=== PATIENT | female | born 1960 | race Caucasian/White ===

== ENCOUNTER 2017-06-02 21:52 | Inpatient (IN) ==
--- NOTE | 2017-06-03 02:17 | Internal Med History&Physical ---
Date of Encounter: 06/03/17 Time of Encounter: 02:11 Assessment and Plan (1) NSTEMI (non-ST elevated myocardial infarction) Current visit: Yes Status: Acute We will start the patient on antischemic medications including heparin drip. Cardiology evaluation. (2) Diabetes mellitus type 2 in obese Current visit: Yes Status: Acute (3) Leucocytosis Current visit: Yes Status: Acute Patient has a leukocytosis 13,000. Temperature 99.2. She has been having some cough of yellow sputum. Also she mentioned that for the past few days she has been having an button on bilious vomiting. She denies any abdominal pain or diarrhea. Check urinalysis right upper quadrant ultrasound. I will put the patient on azithromycin for acute bronchitis Qualifiers: Qualified Code(s): D72.829 - Elevated white blood cell count, unspecified Internal Medicine - H&P: HPI Chief complaint: chest pain History of present illness: Ms. Garcia is a 56 year old female with history of diabetes mellitus, hypertension, dyslipidemia, COPD not on home oxygen will spokeswomen lia Thorne presents to the emergency room with them ain't complaining of chest pain. At approximately 6 PM by patient was sitting down and watching TV, she started experiencing retrosternal chest pain radiating to her back in her right arm associated with sweating. This pain lasted approximately an hour and resolved with nitrates. She was often during my interview. She mentioned that she had a coronary angiogram 3 years ago and no intervention was required. Patient mentioned that she has been having some coffee yellow sputum small amount. She has been having nonbloody non bilious vomiting the past couple days. Denies abdominal pain or diarrhea. Past Med Surg Social Fam HX - Past Medical History Medical history: COPD, diabetes, GERD, hyperlipidemia, hypertension, other Psychiatric history: anxiety, depression - Past Surgical History Surgical History: hysterectomy - Social History Smoking Status: Current every day smoker Packs per day: 1.5 Smokeless Tobacco Status: No Alcohol use: none Drug use: none - Family History Mother Living Status: Hx Family Cardiac Disorders: Yes (HTN) Hx Family Endocrine Disorder: (DM) Sister Hx Family Cardiac Disorders: Yes (HTN) Hx Family Endocrine Disorder: (DM) Internal Medicine - H&P: Meds Amlodipine Besylate 10 mg PO DAILY 12/16/16 [History] Aspirin 81 mg PO DAILY 12/16/16 [History] Atorvastatin [Lipitor] 80 mg PO HS 12/16/16 [History] Ergocalciferol (VITAMIN D2) [Vitamin D2] 1.25 mg PO QWEEK 12/16/16 [History] Gabapentin [Gralise] 900 mg PO HS 12/16/16 [History] Lisinopril-HCTZ 20-12.5 [Prinzide 20-12.5] 2 tab PO DAILY 12/16/16 [History] Omeprazole 20 mg PO DAILY 12/16/16 [History] SitaGLIPtin [Januvia] 100 mg PO DAILY 12/16/16 [History] Venlafaxine XR (24 HR) [Effexor XR] 100 mg PO BID 12/16/16 [History] cloNIDine HCl [Clonidine HCl] 0.4 mg PO HS 12/16/16 [History] Insulin Glargine [Lantus] 70 unit SQ HS 06/02/17 [History] Liraglutide [Victoza 2-John] 1.2 mg SQ DAILY 06/02/17 [History] Albuterol Sulfate [Ventolin Hfa] 90 mcg IH Q4HR PRN 06/03/17 [History] traZODone [TraZODone] 50 mg PO HS 06/03/17 [History] 3 Allergy/AdvReac Type Severity Reaction Status Date / Time No Known Allergies Allergy Verified 06/02/17 19:53 All Systems PM: A 10-system review of systems was performed and is negative for pertinent findings except as documented above in the HPI. Review of systems: 10 point continual systems is negative except for HPI - Constitutional Vitals: Temp Pulse Resp BP Pulse Ox 98.1 F 69 18 194/82 96 06/03/17 00:23 06/03/17 00:23 06/03/17 00:23 06/03/17 00:23 06/03/17 00:23 Exam: Gen.: patient is alert oriented times 3 not in distress cardiac: Normal S1, S2, no additional sounds or murmurs chest: Coarse breath sounds. scattered expiratory wheeze Abdomen: Soft, slight tenderness to deep palpation in lower abdomen. No rebound lower extremity Lax calf muscles no swelling Neuro: no focal deficits
[2017-06-03] MEDS ORDERED: *HR* Heparin 5,000 UNIT/ML VIAL IVP ONE (02:45)
[2017-06-03] MEDS ORDERED: Heparin 25,000 UNIT/500 ML D5W 25,000 UNIT/500 ML MLS IVC SCH (02:45)
[2017-06-03] MEDS ORDERED: *HR* Heparin 5,000 UNIT/ML VIAL IVP PRN ×2 (02:45)
[2017-06-03] MEDS ORDERED: Ondansetron 4 MG/2 ML VIAL IVP PRN (02:47)
[2017-06-03] MEDS ORDERED: Ipratropium/Albuterol Neb 3 ML IH PRN (02:52)
[2017-06-03 02:56] LABS: Activated Partial Thrombo Time 82.1 Seconds (26.0-36.0)
[2017-06-03] MEDS: Azithromycin 500 MG in D5% in Water 250 ML IVPB SCH (03:53)
[2017-06-03 04:34] LABS: Hematocrit 44.4 % (35.3-44.9); INR 1.1; Mean Corpuscular HGB Conc 33.8 g/dL (31.6-35.5); Mean Corpuscular Hemoglobin 30.9 pg (28.0-33.3); Mean Corpuscular Volume 91.4 fL (83.0-100.0); Mean Platelet Volume 10.2 fL (9.4-12.4); Platelet Count 289 K/mcL (140-400); Prothrombin Time 11.6 Seconds (9.4-12.1); Red Blood Count 4.86 M/mcL (3.82-4.97); Red Cell Distribution Width 14.4 % (11.5-14.5)
[2017-06-03 05:12] LABS: Basophils # 0.1 K/mcL (0.0-0.2); Basophils % 0.5 %; Eosinophils # 0.2 K/mcL (0.0-0.6); Eosinophils % 1.8 %; Immature Granulocytes % 0.5 % (0-4); Lymphocytes # 4.8 K/mcL (0.6-4.6); Lymphocytes % 39.3 %; Monocytes # 0.9 K/mcL (0.0-1.3); Monocytes % 7.1 %; Neutrophils # 6.3 K/mcL (1.6-8.9); Segmented Neutrophils % 50.8 %
[2017-06-03 05:23] LABS: BUN/Creatinine Ratio 8 (6-26); Blood Urea Nitrogen 6 mg/dL (7-20); Calcium 9.3 mg/dL (8.6-10.8); Carbon Dioxide 26 mEq/L (19-29); Chloride 103 mEq/L (98-109); Glucose 182 mg/dL (70-99); Magnesium 1.6 mg/dL (1.6-2.6); Osmolality,Calculated 298 (280-300); Potassium 3.3 mEq/L (3.5-4.5); Sodium 143 mEq/L (136-145); eGFR For African Americans > 60 (> 60); eGFR For Non-African Americans > 60 (> 60)
[2017-06-03 05:25] LABS: Hemoglobin A1C 9.3 %
[2017-06-03] MEDS: Pantoprazole 40 MG VIAL IVP SCH (06:08)
--- NOTE | 2017-06-03 08:02 | Cardiology Consult Note ---
Date of Encounter: 06/03/17 Time of Encounter: 09:00 Assessment and Plan (1) Elevated troponin Current Visit: Yes Status: Acute Mild troponin elevation at 0.11, 0.08 in the setting of leukocytosis and elevated b/p (198/82). Likely demand ischemia. Atypical chest pain, the sounds pleuritic. Now pain free. TTE pending. [facility] 2012 showed minimal CAD. TTE 2012- LVEF 55%;No SMWMAs. There is evidence of mild diastolic dysfunction of the left ventricle. Trivial aortic regurgitation. Mild mitral regurgitation. Trivial tricuspid regurgitation. No pulmonary hypertension.- She does have multiple cardiac risk factors including tobacco use, HTN, HLD, and DM type II. Aggressive risk factor modification. Continue asa and statin. Consider work-up of viral illness with cough, nausea, and chills. Started on antibiotic for acute bronchitis by primary team. Patient agrees with plan. (2) Chest pain Current Visit: No Status: Acute Atypical chest pain. See plan above. We will follow TTE with you. Qualifiers: Chest pain type: chest pain on breathing Qualified Code(s): R07.1 - Chest pain on breathing; R07.81 - Pleurodynia (3) Hypertension Current Visit: Yes Status: Acute Accelerated hypertension. On multiple agents. Increase lisinopril. Continue clonidine, HCTZ, norvasc. Qualifiers: Hypertension type: unspecified secondary hypertension Qualified Code(s): I15.9 - Secondary hypertension, unspecified; I15 - Secondary hypertension Discussion w patient/family: The assessment and plan as outlined above was discussed with the patient and/or family members who expressed understanding and agreement. All questions were answered. Thank you for involving us in the care of your patient. Please call with any questions. History of Present Illness Consult date: 06/03/17 Requesting physician: Patrick Key Consult reason: Elevated troponin Chief complaint: SOB, Nausea, cough and chest pain History of present illness: Ms. Garcia is a 56 year old female with a history of COPD, HTN, HLD, DM type II, and tobacco use who presented with multiple complaints. She c/o SOB, cough, nausea, and vomiting for one week. C/o malaise, fever, and chills. Yesterday she developed midsternal sharp chest pain radiating to her mid back below her shoulder blades and right arm pain. Her pain increased with cough and movement. Pain improved with rest. On my exam she is pain free. She is noted to be shaking and says she fills chilled. Cardiology is consulted for elevated troponin. Past Med Surg Social Fam HX - Past Medical History Medical history: COPD, diabetes, GERD, hyperlipidemia, hypertension, other Psychiatric history: anxiety, depression - Past Surgical History Surgical History: hysterectomy - Social History Smoking Status: Current every day smoker Packs per day: 1.5 Smokeless Tobacco Status: No Alcohol use: none Drug use: none - Family History Mother Living Status: Hx Family Cardiac Disorders: Yes (HTN) Hx Family Endocrine Disorder: (DM) Sister Hx Family Cardiac Disorders: Yes (HTN) Hx Family Endocrine Disorder: (DM) Medications and Allergies Amlodipine Besylate 10 mg PO DAILY 12/16/16 [History] Aspirin 81 mg PO DAILY 12/16/16 [History] Atorvastatin [Lipitor] 80 mg PO HS 12/16/16 [History] Ergocalciferol (VITAMIN D2) [Vitamin D2] 1.25 mg PO QWEEK 12/16/16 [History] Gabapentin [Gralise] 900 mg PO HS 12/16/16 [History] Lisinopril-HCTZ 20-12.5 [Prinzide 20-12.5] 2 tab PO DAILY 12/16/16 [History] Omeprazole 20 mg PO DAILY 12/16/16 [History] SitaGLIPtin [Januvia] 100 mg PO DAILY 12/16/16 [History] Venlafaxine XR (24 HR) [Effexor XR] 100 mg PO BID 12/16/16 [History] cloNIDine HCl [Clonidine HCl] 0.4 mg PO HS 12/16/16 [History] Insulin Glargine [Lantus] 70 unit SQ HS 06/02/17 [History] Liraglutide [Victoza 2-John] 1.2 mg SQ DAILY 06/02/17 [History] Albuterol Sulfate [Ventolin Hfa] 90 mcg IH Q4HR PRN 06/03/17 [History] traZODone [TraZODone] 50 mg PO HS 06/03/17 [History] 3 Allergy/AdvReac Type Severity Reaction Status Date / Time No Known Allergies Allergy Verified 06/02/17 19:53 All Systems Review: A 10-system review of systems was performed and is negative for pertinent findings except as documented above in the HPI. Physical Examination Vital Signs, Last 4 Hours Temp Pulse Resp BP Pulse Ox 06/03/17 07:11 98.1 F 61 18 198/83 96 06/03/17 04:10 97.8 F 71 18 166/78 94 General: Conversant, No Apparent Distress HEENT: Atraumatic, Normocephaly, Mucus Membranes Moist Neck: No JVD, Normal carotid pulses Cardiac: Reg Rate and Rhythm, Normal S1 and S2, No Murmur Lungs: Other (Wheezes scattered throughout, respirations mildly labored, trev appearance) Neuro: Alert and responsive, No focal deficits noted Abdomen: Soft, Non-Tender Skin: No rashes noted on visualized skin Musculoskeletal: No Chest Wall Tenderness Extremities: No Clubbing, No Cyanosis, No Edema, Normal Pulses Results 06/03/17 02:23 06/03/17 02:23 Lab Results 06/03/17 06/03/17 06/03/17 02:23 02:23 02:23 WBC Hgb Hct Plt Count INR 1.1 APTT 82.1 H D Sodium 143 Potassium 3.3 L Chloride 103 Carbon Dioxide 26 BUN 6 L Creatinine 0.76 Glucose 182 H Calcium 9.3 Magnesium 1.6 Troponin I 0.08 H* 06/03/17 02:23 WBC 12.4 H Hgb 15.0 Hct 44.4 Plt Count 289 INR APTT Sodium Potassium Chloride Carbon Dioxide BUN Creatinine Glucose Calcium Magnesium Troponin I Chest X-Ray 06/03/17 02:44 IMPRESSION: No acute cardiopulmonary disease. Previously described nodule right mid lung is not appreciated on this exam. Unenhanced chest CT for complete evaluation is recommended. D/ / Patrick Key MD / Patrick Key MD Interpreting Provider: Patrick Key MD - Imaging and Cardiology Echo: report reviewed (2012- Normal left ventricular size and systolic function. * LVEF 55%;No SMWMAs% * There is evidence of mild diastolic dysfunction of the left ventricle. RV * Normal right ventricular size and function. Valves * There is evidence of trivial aortic regurgitation. * There is evidence of mild mitral regurgitation. * There is trivial tricuspid regurgitation RVSP * There is no pulmonary hypertension.) Cardiac cath: report reviewed (2012- minimal CAD. EF 55%.) - EKG Interpretation EKG results cardiology: personally reviewed, normal ECG, sinus rhythm Consult Discharge Plan - Plan Referrals: Bonnie Gibson CNP [Primary Care Provider] -
[2017-06-03] MEDS ORDERED: Venlafaxine XR (24 HR) 150 MG CAP.ER.24H PO SCH (09:00)
[2017-06-03] MEDS ORDERED: Lisinopril-HCTZ 20-12.5mg TABLET PO SCH (09:00)
[2017-06-03] MEDS ORDERED: NON-FORMULARY MEDICATION 1 EACH EACH (Omeprazole [Omeprazole] 20 MG) PO SCH (09:00)
--- NOTE | 2017-06-03 09:02 | Event Note ---
Date of Encounter: 06/03/17 Time of Encounter: 09:02 56-year-old female with history of hypertension, diabetes, tobacco abuse and COPD, presents with retrosternal chest pain radiating to right arm and hand. Patient was noted to have a mildly elevated troponin at admission. Patient seen and examined at bedside. Continues to have coughing bouts, improved chest pain. Chest-S1, S2 heard. Regular rate and rhythm. Lungs with bilateral coarse rhonchorous breath sounds, scattered rhonchi Labs reviewed-WBC slightly improved to 12.4, serum potassium 3.3, troponin 0.08 , hemoglobin A1c 9.3% Chest x-ray shows no acute abnormality Chest pain, elevated troponin-could be demand ischemia due to acute bronchitis/ COPD. Continue telemetry monitoring, cycle troponins. Patient has been started on IV heparin drip for anticoagulation. Continue aspirin, statin, beta- niranjan, NORA inhibitor. Check 2-D echocardiogram. Follow-up cardiology consult. Acute bronchitis, COPD, tobacco abuse-continue azithromycin, start oral steroids. Start scheduled bronchodilators along with supplemental oxygen as needed. Smoking cessation counseling provided for 40 minutes, patient will consider to quit smoking. Declines nicotine transdermal patch at this time.
[2017-06-03] MEDS: Insulin LISPRO 300 UNITS/3 ML VIAL SQ SCH ×3 (09:11→17:09)
[2017-06-03] MEDS: Aspirin 81 MG TAB.CHEW PO SCH (09:12)
[2017-06-03] MEDS: amLODIPine 5 MG TABLET PO SCH (09:12)
[2017-06-03] MEDS ORDERED: Lisinopril 20 MG TABLET PO ONE (10:31)
[2017-06-03] MEDS: Venlafaxine 25 MG, Venlafaxine 75 MG PO SCH ×2 (10:44→20:59)
[2017-06-03] MEDS: predniSONE 20 MG TABLET PO SCH (10:45)
[2017-06-03] MEDS: Ipratropium/Albuterol Neb 3 ML IH SCH ×3 (11:18→21:59)
--- NOTE | 2017-06-03 14:41 | Event Note ---
Date of Encounter: 06/03/17 Time of Encounter: 14:39 - Cardiology Event Note TTE shows Normal LV systolic function, LVEF 65%. Mild concentric left ventricular hypertrophy. Moderate left ventricular diastolic dysfunction. Normal right ventricular size and function. Moderately dilated left atrium. No significant valvular dysfunction. Mild pulmonary hypertension. Estimated RVSP = 36 mmHg. No further cardiac testing recommended at this time. Mild troponin likely demand ischemia in the setting of acute bronchitis and elevated blood pressure. Aggressive risk factor modification. Smoking cessation and better blood pressure control. Out-patient f/u will be scheduled in 2-3 weeks. Cardiology signing off.
[2017-06-03] MEDS: *HR* Heparin 5,000 UNIT/ML VIAL SQ SCH (17:09)
[2017-06-03] MEDS ORDERED: Insulin DETEMIR 100 UNIT/ML X5UNITS SQ SCH (21:00)
[2017-06-03] MEDS ORDERED: cloNIDine HCl 0.1 MG TABLET PO SCH (21:00)
[2017-06-03] MEDS ORDERED: Gabapentin 300 MG CAPSULE PO SCH (21:00)
[2017-06-03] MEDS ORDERED: NON-FORMULARY MEDICATION 1 EACH EACH (Insulin Glargine [Lantus] 70 UNIT) SQ SCH (21:00)
[2017-06-03] MEDS ORDERED: traZODone 50 MG TABLET PO SCH (21:00)
[2017-06-04] MEDS: Azithromycin 500 MG in D5% in Water 250 ML IVPB SCH (03:03)
[2017-06-04] MEDS: Ipratropium/Albuterol Neb 3 ML IH SCH ×3 (04:14→16:34)
[2017-06-04 05:28] LABS: BUN/Creatinine Ratio 14 (6-26); Blood Urea Nitrogen 12 mg/dL (7-20); Calcium 9.3 mg/dL (8.6-10.8); Carbon Dioxide 27 mEq/L (19-29); Chloride 104 mEq/L (98-109); Glucose 272 mg/dL (70-99); Osmolality,Calculated 297 (280-300); Potassium 3.9 mEq/L (3.5-4.5); Sodium 139 mEq/L (136-145); eGFR For African Americans > 60 (> 60); eGFR For Non-African Americans > 60 (> 60)
[2017-06-04 05:49] LABS: Basophils # 0.1 K/mcL (0.0-0.2); Basophils % 0.5 %; Eosinophils # 0.1 K/mcL (0.0-0.6); Eosinophils % 1.2 %; Hematocrit 42.9 % (35.3-44.9); Hemoglobin 14.5 g/dL (11.5-15.4); Immature Granulocytes % 0.3 % (0-4); Lymphocytes # 3.9 K/mcL (0.6-4.6); Lymphocytes % 36.1 %; Mean Corpuscular HGB Conc 33.8 g/dL (31.6-35.5); Mean Corpuscular Hemoglobin 30.7 pg (28.0-33.3); Mean Corpuscular Volume 90.7 fL (83.0-100.0); Mean Platelet Volume 10.2 fL (9.4-12.4); Monocytes # 0.7 K/mcL (0.0-1.3); Monocytes % 6.8 %; Neutrophils # 5.9 K/mcL (1.6-8.9); Platelet Count 275 K/mcL (140-400); Red Blood Count 4.73 M/mcL (3.82-4.97); Red Cell Distribution Width 14.3 % (11.5-14.5); Segmented Neutrophils % 55.1 %
[2017-06-04] MEDS: Pantoprazole 40 MG VIAL IVP SCH (06:03)
[2017-06-04] MEDS: *HR* Heparin 5,000 UNIT/ML VIAL SQ SCH (06:03)
[2017-06-04] MEDS ORDERED: Lisinopril 20 MG TABLET PO SCH (09:00)
[2017-06-04] MEDS ORDERED: hydroCHLOROthiazide 25 MG TABLET PO SCH ×2 (09:00)
--- NOTE | 2017-06-04 10:47 | Discharge Summary ---
<Lamonte Greenwood - Last Filed: 06/04/17 13:32> Date of Encounter: 06/04/17 - Discharge Medications Prescriptions: Azithromycin 250 mg PO DAILY #4 tablet Home Medications: Amlodipine Besylate 10 mg PO DAILY 12/16/16 [History] Aspirin 81 mg PO DAILY 12/16/16 [History] Atorvastatin [Lipitor] 80 mg PO HS 12/16/16 [History] Ergocalciferol (VITAMIN D2) [Vitamin D2] 1.25 mg PO TH 12/16/16 [History] Gabapentin [Gralise] 900 mg PO HS 12/16/16 [History] Omeprazole 20 mg PO DAILY 12/16/16 [History] SitaGLIPtin [Januvia] 100 mg PO DAILY 12/16/16 [History] cloNIDine HCl [Clonidine HCl] 0.4 mg PO HS 12/16/16 [History] Insulin Glargine [Lantus] 70 unit SQ HS 06/02/17 [History] Liraglutide [Victoza 2-John] 1.2 mg SQ DAILY 06/02/17 [History] Albuterol Sulfate [Ventolin Hfa] 90 mcg IH Q4HR PRN 06/03/17 [History] Insulin ASPART [NovoLOG] 0 unit SQ TID PRN 06/03/17 [History] Lisinopril/Hydrochlorothiazide [Zestoretic 20-25 mg Tablet] 1 tab PO DAILY 06/03 [History] Tiotropium [Spiriva] 1 puff IH DAILY 06/03/17 [History] Venlafaxine HCl [Venlafaxine HCl] 100 mg PO BID 06/03/17 [History] traZODone [TraZODone] 50 mg PO HS 06/03/17 [History] Azithromycin 250 mg PO DAILY #4 tablet 06/04/17 [Rx] Allergies/Adverse Reactions: 3 Allergy/AdvReac Type Severity Reaction Status Date / Time No Known Allergies Allergy Verified 06/03/17 12:54 Procedures/tests Complete & Pending: Procedures Performed prior 72 hours Category Date Time Status US abdomen limited [US] Routine Exams 06/04/17 09:30 Completed EKG [ECG 12 lead ECG] [ECG] Routine Y 06/03/17 10:42 Ordered EV echocardiogram Routine Y 06/03/17 07:52 Completed Date of admission: 06/03/17 02:41 Primary care physician: Bonnie Gibson CNP Consults: 06/03/17 01:05 Consult to Log Carrier Operator [CONS] Routine Reason for SW Consult: pt has no car and no way to get home to [place] 06/03/17 02:41 Consult to Cardiology [CONS] Routine Comment: Consulting Provider: Carolina Yeboah Reason for Consult: nstemi Call Completed: Yes Discharging clinician: Alonzo Carmichael Anticipated date of discharge: 06/04/17 - Patient Status Disposition: Home, Self-Care Condition: Good Functional capacity at discharge: independent ambulation Overall status at discharge: patient is progressing back to baseline - Discharge Instructions Follow Up With: Omar Prater MD [Partnered Physician] - (Cardiologoy will call you with an appointment time and date. ) Bonnie Gibson CNP [Primary Care Provider] - 06/12/17 9:00 am Surgery [facility] [Provider Group] Additional Instructions: F/u with PCP within 1 to 2 weeks and Cardiology in 1 week. If chest pain returns please go to ED. Please schedule an appointment with surgeon for follow up on Gallstones. - Diet and Activity Activity: resume usual activities as tolerated Diet: advance to your usual diet Hospital course: Ms. Garcia is a 56 year old female - Time Spent with Patient Total time spent providing and/or coordinating discharge services: - Constitutional Vitals: Temp Pulse Resp BP Pulse Ox 97.6 F 60 17 158/79 98 06/04/17 11:56 06/04/17 11:56 06/04/17 11:56 06/04/17 11:56 06/04/17 11:56 <Alonzo Carmichael - Last Filed: 06/04/17 15:57> Date of Encounter: 06/04/17 Time of Encounter: 11:25 - Discharge Diagnosis (1) Acute respiratory infection Priority: Primary Status: Acute Comments: Started on azithromycin in-patient. Cardiac workup negative for acute coronary syndrome. TTE suggests chronic LV diastolic dysfunction, will follow-up outpatient cardiology. Atypical chest pain likely response to respiratory process. Leukocytosis downtrending. Continue azithromycin for 4 days after discharge. (2) Leucocytosis Priority: Secondary Status: Resolved Comments: Patient leukocytes downtrending to WNL. Patient on azithromycin, continuing outpatient as above. Chest pain resolving, pt improved on antibiotics and respiratory therapy inpatient. Will discharge today, patient to continue home meds as well as prescribed 4 more days of azithromycin. Qualifiers: Leukocytosis type: unspecified Qualified Code(s): D72.829 - Elevated white blood cell count, unspecified (3) Elevated troponin Priority: Secondary Status: Acute Comments: Mild troponin elevation at 0.11, 0.08 in the setting of leukocytosis and elevated b/p (198/82). Likely demand ischemia. Pt demonstrated quicker than expected improvement, will discharge today prior to the two midnight expected hospital management. Continue antibiotics for 4 more days, will discharge today. Atypical chest pain, the sounds pleuritic. Continues to be pain free. TTE shows LVEF 65%; mild concentric left ventricular hypertrophy; mild left ventricular diastolic dysfunction. Continue ASA and statin. (4) Hypertension Priority: Secondary Status: Acute Comments: Discharging with changes to lisinopril as per hospital course. Continue clonidine, HCTZ, norvasc. Qualifiers: Hypertension type: unspecified secondary hypertension Qualified Code(s): I15.9 - Secondary hypertension, unspecified; I15 - Secondary hypertension (5) Chest pain Priority: Secondary Status: Acute Comments: Atypical chest pain. TTE shows LVEF 65%. As above, chest pain likely secondary to demand ischemia from acute respiratory infection, being treated with antibiotics. Patient's symptoms resolving, troponin's downtrending. Qualifiers: Chest pain type: chest pain on breathing Qualified Code(s): R07.1 - Chest pain on breathing; R07.81 - Pleurodynia (6) Right upper quadrant abdominal pain Priority: Secondary Status: Acute Comments: Mild tenderness to palpation. Ultrasound RUQ shows non-obstructive gallstones. Pt to follow-up outpatient with general surgery. Procedures/tests Complete & Pending: Procedures Performed prior 72 hours Category Date Time Status US abdomen limited [US] Routine Exams 06/04/17 09:30 Ordered EKG [ECG 12 lead ECG] [ECG] Routine Y 06/03/17 10:42 Ordered EV echocardiogram Routine Y 06/03/17 07:52 Completed Date of admission: 06/03/17 02:41 Primary care physician: Bonnie Gibson HEAD OF SALES Consults: 06/03/17 01:05 Consult to Log Carrier Operator [CONS] Routine Reason for SW Consult: pt has no car and no way to get home to [place] 06/03/17 02:41 Consult to Cardiology [CONS] Routine Comment: Consulting Provider: [facility] Reason for Consult: nstemi Call Completed: Yes Hospital course: Ms. Garcia is a 56 year old female with a history of COPD, HTN, HLD, DM type II, and tobacco use who presented with SOB and cough for one week with complaint of malaise, fever, and chills. 06/02 she developed midsternal sharp chest pain radiating to her mid back below her shoulder blades and right arm pain at rest. Cardiology was consulted for elevated troponin, now downtrending ( .11, .08). MUNIR showed normal LV systolic function, LVEF of 65%, moderate left ventricular diastolic dysfunction. Cardiology assessed chest pain from demand ischemia secondary to acute bronchitis. Pt put on azithromycin. Pt improving on antibiotics as well as bronchodilation and supplemental oxygen prn. Will discharge today, continuing azithromycin for four more days, follow-up with cardiology outpatient in approximately 1 week, PCP in 2 weeks. Pt to continue home meds, beta-niranjan considered but not prescribed due to borderline bradycardia. - Time Spent with Patient Total time spent providing and/or coordinating discharge services: - Constitutional Vitals: Temp Pulse Resp BP Pulse Ox 97.6 F 63 15 123/79 98 06/04/17 07:45 06/04/17 07:45 06/04/17 07:45 06/04/17 07:45 06/04/17 07:45 General appearance: Present: A&O X 3 - Respiratory Respiratory exam: Absent: respiratory distress, tachypnea - Cardiovascular Cardiovascular exam: Present: RRR, +S1, +S2. Absent: systolic murmur - GI/Abdominal GI/Abdominal exam: Present: no peritoneal signs (tenderness to palpation RUQ) <Jeffrey Echevarria - Last Filed: 06/04/17 18:22> Date of Encounter: 06/04/17 Procedures/tests Complete & Pending: Procedures Performed prior 72 hours Category Date Time Status US abdomen limited [US] Routine Exams 06/04/17 09:30 Completed EKG [ECG 12 lead ECG] [ECG] Routine Y 06/03/17 10:42 Ordered EV echocardiogram Routine Y 06/03/17 07:52 Completed Date of admission: 06/03/17 02:41 Primary care physician: Bonnie Gibson CNP Consults: 06/03/17 01:05 Consult to Log Carrier Operator [CONS] Routine Reason for SW Consult: pt has no car and no way to get home to [place] 06/03/17 02:41 Consult to Cardiology [CONS] Routine Comment: Consulting Provider: Carolina Yeboah Reason for Consult: nstemi Call Completed: Yes Hospital course: Ms. Garcia is a 56 year old female - Time Spent with Patient Total time spent providing and/or coordinating discharge services: - Constitutional Vitals: Temp Pulse Resp BP Pulse Ox 97.6 F 60 17 158/79 98 06/04/17 11:56 06/04/17 11:56 06/04/17 11:56 06/04/17 11:56 06/04/17 11:56 - Attending Attestation I examined this patient and my medical decision-making was reviewed with the Resident Physician. I agree with the documented findings, disposition and treatment plan as described except to the extent set forth below. Ms. Garcia is a 56 year old female with a history of COPD, HTN, HLD, DM type II, and tobacco use who presented with multiple complaints. She c/o SOB, cough, nausea, and vomiting for one week. C/o malaise, fever, and chills. Today she is feeling better. Denied any CP. Gen: A, A, O x3 Chest : Diminished BS b/l. mild ronchi, no crackles / no wheezing Heart : s1 s2 + RRR No murmurs a/p 1. Acute initial NSTEMI / Slightly elevated Trop due to demand ischemia with bronchitis and uncontrolled BP No acute EKG changes , 2 D Ehco - benign Need to f/u with card as an out pt 2. RUQ abd pain with non obstructive cholelithiasis recommend to f/u with Surgery as an out pt 3. Acute bronchitis d/c home on Po Azithromycin
[2017-06-04] MEDS: Insulin LISPRO 300 UNITS/3 ML VIAL SQ SCH ×2 (11:46→12:15)
[2017-06-04] MEDS: Venlafaxine 25 MG, Venlafaxine 75 MG PO SCH (11:49)
[2017-06-04] MEDS: predniSONE 20 MG TABLET PO SCH (11:50)
[2017-06-04] MEDS: Aspirin 81 MG TAB.CHEW PO SCH (11:50)
[2017-06-04] MEDS: amLODIPine 5 MG TABLET PO SCH (11:50)
[2017-06-04 11:57] VITALS: BP 158/79
== END 2017-06-04 16:00 | disposition home or self-care (01) | DRG 202 ==
LOC: 3BNU → SUATTDRO 06-03 02:41
PROVIDERS: ADMIT Internal Medicine; ATTEND Family Medicine

== ENCOUNTER 2021-01-13 09:34 | Inpatient (IN) ==
[2021-01-13] MEDS ORDERED: CeFAZolin Syr 2,000MG/20 ML 2,000 MG/20 ML SYRINGE IVPB ONE (10:20)
[2021-01-13] MEDS ORDERED: *HR* Remifentanil 2 MG VIAL IVP ONE (10:23)
[2021-01-13] MEDS ORDERED: *HR* FentaNYL (PF) 100 MCG/2 ML VIAL ONE (10:23)
[2021-01-13] MEDS ORDERED: *HR* Propofol 200 MG/20 ML VIAL IVP ONE (10:23)
[2021-01-13] MEDS ORDERED: Lidocaine -MPF 2% 2 ML VIAL ONE (10:25)
[2021-01-13] MEDS ORDERED: 0.9 % Sodium Chloride 1,000 ML IVC SCH ×2 (10:30→16:11)
[2021-01-13] MEDS ORDERED: Ipratropium/Albuterol Neb 3 ML IH ONE (10:37)
[2021-01-13] MEDS ORDERED: Ondansetron 4 MG/2 ML VIAL IVP PRN (10:38)
[2021-01-13] MEDS ORDERED: Heparin 1,000 UNITS/500 mL 500 ML ONE ×2 (10:38→11:20)
[2021-01-13] MEDS ORDERED: Ondansetron 4 MG/2 ML VIAL ONE (10:41)
[2021-01-13] MEDS ORDERED: Protamine Sulfate 50 MG/5 ML VIAL IVP ONE (11:20)
[2021-01-13] MEDS ORDERED: Lidocaine HCL 4 ML Topical Solution (Laryng-O-Jet Kit Sterile Pak) TP ONE (11:24)
[2021-01-13] MEDS ORDERED: Vancomycin 1,000 MG, Sodium Chloride IRRigation 1,000 ML IR ONE (11:35)
[2021-01-13] MEDS ORDERED: EPHEDrine 50 MG/ML VIAL ONE (12:21)
[2021-01-13] MEDS ORDERED: *HR* Heparin 5,000 UNIT/ML VIAL ONE ×2 (13:22→13:51)
[2021-01-13] MEDS ORDERED: *HR* Labetalol 20 MG/4 ML SYRINGE IVP ONE (13:33)
[2021-01-13] MEDS ORDERED: Acetaminophen IV 1,000 MG/100 ML BAG IVPB ONE (14:45)
[2021-01-13] MEDS: *HR* HYDROmorphone PF 0.5 MG/0.5 ML SYRINGE IVP PRN ×2 (14:55→15:10)
[2021-01-13] MEDS ORDERED: Ipratropium Neb 0.5 MG NEBULIZER IH PRN (16:11)
[2021-01-13] MEDS ORDERED: *HR* Labetalol 20 MG/4 ML SYRINGE IVP PRN (16:11)
[2021-01-13] MEDS ORDERED: Naloxone 0.4 MG/ML INJ IVP PRN (16:11)
[2021-01-13] MEDS ORDERED: *HR* Dextrose 50 % in Water (Vial) 50 ML VIAL IVP PRN (16:11)
[2021-01-13] MEDS ORDERED: Dextrose Gel 15 GM/37.5 ML TUBE PO PRN ×2 (16:11)
[2021-01-13] MEDS ORDERED: Acetaminophen 325 MG TABLET PO PRN (16:11)
[2021-01-13] MEDS ORDERED: D5% in Water 1,000 ML IVC PRN (16:11)
[2021-01-13] MEDS ORDERED: 0.9 % Sodium Chloride 500 ML ONE (16:54)
[2021-01-13] MEDS: Insulin LISPRO 300 UNITS/3 ML VIAL SUBQ SCH (17:05)
[2021-01-13] MEDS: *HR* Metoprolol 5 MG/5 ML VIAL IVP SCH (18:34)
[2021-01-13] MEDS: CeFAZolin 2 GM/120 ML BAG IVPB SCH (19:41)
[2021-01-13] MEDS: *HR* HYDROcodone/Acet 5/325 mg TABLET PO PRN (19:41)
[2021-01-13] MEDS ORDERED: traZODone 50 MG TABLET PO SCH (21:00)
[2021-01-13] MEDS ORDERED: Gabapentin 300 MG CAPSULE PO SCH (21:00)
[2021-01-13] MEDS ORDERED: Insulin LISPRO 300 UNITS/3 ML VIAL SUBQ SCH (21:00)
[2021-01-13] MEDS ORDERED: Vancomycin 1,500 MG/265 ML IV.SOLN IVPB ONE (23:30)
[2021-01-14] MEDS: *HR* Metoprolol 5 MG/5 ML VIAL IVP SCH ×3 (01:26→12:32)
[2021-01-14] MEDS: *HR* OxyCODONE Immed Rel 5 MG TABLET PO PRN ×2 (01:27→12:31)
[2021-01-14] MEDS: CeFAZolin 2 GM/120 ML BAG IVPB SCH (04:00)
[2021-01-14] MEDS ORDERED: *HR* Heparin 5,000 UNIT/ML VIAL SQ SCH ×2 (06:00)
[2021-01-14] MEDS: Insulin LISPRO 300 UNITS/3 ML VIAL SUBQ SCH ×2 (08:22→11:14)
[2021-01-14] MEDS ORDERED: Tiotropium 10 INH DOSE IH SCH (09:00)
[2021-01-14] MEDS ORDERED: Cholecalciferol (D-3) 1,000 UNIT (25MCG) TABLET PO SCH (09:00)
[2021-01-14] MEDS ORDERED: amLODIPine 5 MG TABLET PO SCH (09:00)
[2021-01-14] MEDS ORDERED: Aspirin 81 MG TAB.CHEW PO SCH (09:00)
[2021-01-14] MEDS ORDERED: Venlafaxine XR (24 HR) 150 MG CAP.ER.24H PO SCH (09:00)
[2021-01-14] MEDS ORDERED: Gabapentin 300 MG CAPSULE PO SCH (09:00)
[2021-01-14] MEDS: *HR* HYDROcodone/Acet 5/325 mg TABLET PO PRN (09:36)
[2021-01-14 11:11] VITALS: BP 124/75
[2021-01-14] MEDS ORDERED: cloNIDine HCL 0.1 MG TABLET PO SCH (21:00)
== END 2021-01-14 14:45 | disposition home or self-care (01) | DRG 38 ==
LOC: SAMDAY 09:34 → 2NNU 11:37
PROVIDERS: ADMIT Surgery; ATTEND Surgery